=== PATIENT | male | born 1950 | race Caucasian/White ===

== ENCOUNTER → 2019-02-24 | Outpatient (CLI) | payer MEDICARE, OTHER ==
[~2019-02-24] MED LIST: "\\\"BP PILL\\\""; ALLOPURINOL 10100 M1 PO; ALLOPURINOL 30300 M2 PO; ATENOLOL 25MG T25 M1 PO; ATENOLOL 50MG T50 M1 PO; CIPRO500 MG PO; HYDROCODON-ACE1 EAC5 PO; LISINOPRIL10 MG PO; MAGNESIUM OXID400 MG PO; METFORMIN; METFORMIN HCL500 MG PO; SULFAMETHOXAZO1 EAC1; ZESTORETIC 20-1 EAC1 PO
== END ==
LOC: M.WC 08:54
DX: E11.622 Type 2 diabetes mellitus with other skin ulcer (principal); I87.312 Chronic venous hypertension (idiopathic) with ulcer of left lower extremity; L97.821 Non-pressure chronic ulcer of other part of left lower leg limited to breakdown of skin; I89.0 Lymphedema, not elsewhere classified; E11.36 Type 2 diabetes mellitus with diabetic cataract; M10.9 Gout, unspecified; Z85.46 Personal history of malignant neoplasm of prostate; Z98.49 Cataract extraction status, unspecified eye

== ENCOUNTER → 2019-03-03 | Outpatient (CLI) | payer MEDICARE, OTHER | LOC: M.WC 03:19 | DX: E11.622 Type 2 diabetes mellitus with other skin ulcer (principal); I87.312 Chronic venous hypertension (idiopathic) with ulcer of left lower extremity; L97.821 Non-pressure chronic ulcer of other part of left lower leg limited to breakdown of skin; I89.0 Lymphedema, not elsewhere classified; E11.36 Type 2 diabetes mellitus with diabetic cataract; I10 Essential (primary) hypertension; M10.9 Gout, unspecified; Z85.46 Personal history of malignant neoplasm of prostate ==

== ENCOUNTER → 2019-03-10 | Outpatient (CLI) | payer MEDICARE, OTHER | LOC: M.WC 05:01 | DX: E11.622 Type 2 diabetes mellitus with other skin ulcer (principal); I87.312 Chronic venous hypertension (idiopathic) with ulcer of left lower extremity; L97.821 Non-pressure chronic ulcer of other part of left lower leg limited to breakdown of skin; I89.0 Lymphedema, not elsewhere classified; E11.36 Type 2 diabetes mellitus with diabetic cataract; I10 Essential (primary) hypertension; M10.9 Gout, unspecified; Z85.46 Personal history of malignant neoplasm of prostate ==

== ENCOUNTER → 2019-03-17 | Outpatient (CLI) | payer MEDICARE, OTHER | LOC: M.WC 04:56 | DX: E11.622 Type 2 diabetes mellitus with other skin ulcer (principal); I87.312 Chronic venous hypertension (idiopathic) with ulcer of left lower extremity; L97.521 Non-pressure chronic ulcer of other part of left foot limited to breakdown of skin; E11.36 Type 2 diabetes mellitus with diabetic cataract; I89.0 Lymphedema, not elsewhere classified; I10 Essential (primary) hypertension; M10.9 Gout, unspecified; Z85.46 Personal history of malignant neoplasm of prostate ==

== ENCOUNTER → 2019-03-24 | Outpatient (CLI) | payer MEDICARE, OTHER | LOC: M.WC 05:42 | DX: E11.622 Type 2 diabetes mellitus with other skin ulcer (principal); I87.312 Chronic venous hypertension (idiopathic) with ulcer of left lower extremity; L97.828 Non-pressure chronic ulcer of other part of left lower leg with other specified severity; I89.0 Lymphedema, not elsewhere classified; E11.36 Type 2 diabetes mellitus with diabetic cataract; I10 Essential (primary) hypertension; M10.9 Gout, unspecified; Z85.46 Personal history of malignant neoplasm of prostate ==